=== PATIENT | male | born 1975 | race Caucasian/White ===

== ENCOUNTER 2017-01-13 15:47 | Emergency (ER) | payer BC ==
[~2017-01-13] VITALS: Ht 180.3 cm; Wt 95.3 kg
[2017-01-13] MEDS ORDERED: NKM (16:07)
--- NOTE | 2017-01-13 16:22 | Emergency Room Report ---
History of Present Illness General Chief Complaint: Vomiting Source: Patient Present Illness HPI Patient is a 41-year-old male presented after increased abdominal pain as well as vomiting. Patient reports having several days of crampy abdominal pain associated with nausea. Patient stated this began after Easter meal. Patient denied any fever. He denied feeling dizzy or lightheaded. Patient denied any diarrhea. Patient stated that he crampy abdominal pain which did not radiate. He denied any back pain. He denied other current locations of pain. Patient reported having some increased urine cloudiness. Allergies: Coded Allergies: No Known Allergies (Unverified , 01/13/17) Patient History Past Medical History: see triage record Reviewed Nursing Documentation: PMH: Agreed, PSxH: Agreed Nursing Documentation-PMH Past Medical History: No Stated History Review of Systems All Other Systems: negative except mentioned in HPI Physical Exam Vital Signs Date Time Temp Pulse Resp B/P Pulse Ox O2 Delivery O2 Flow Rate FiO2 01/13/17 16:01 98.1 65 16 134/65 97 Room Air Sp02 EP Interpretation: reviewed, normal General Appearance: normal inspection, well appearing, no apparent distress, alert, GCS 15, non-toxic Head: atraumatic ENT: normal ENT inspection, hearing grossly normal, normal voice Neck: normal inspection, full range of motion, supple, no bony tend Respiratory: normal inspection, lungs clear, normal breath sounds, no respiratory distress, no retraction, no wheezing Cardiovascular #1: regular rate, rhythm, no edema Gastrointestinal: normal inspection, normal bowel sounds, non tender, soft, no guarding, no hernia Genitourinary: no CVA tenderness Musculoskeletal: normal inspection, back normal, normal range of motion Neurologic: normal inspection, alert, oriented x3, responsive, 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 Differential diagnoses included ischemic bowel, appendicitis, perforated viscus, abdominal aortic aneurysm, inferior myocardial infarction, viral gastroenteritis . The patient appears to have gastroenteritis. The patient was given oral Zofran.He was noted to be orthostatic. The patient was given IV fluids. The patient reported having improvement in his pain as well as nausea. Patient is advised to return if any worsening condition or if any changes in status that are concerning. Labs Test 01/13/17 17:00 White Blood Count 11.1 K/UL (4.8-10.8) Red Blood Count 5.52 M/UL (4.70-6.10) Hemoglobin 17.2 G/DL (14.2-18.0) Hematocrit 48.3 % (42.0-52.0) Mean Corpuscular Volume 88 FL (80-99) Mean Corpuscular Hemoglobin 31.3 PG (27.0-31.0) Mean Corpuscular Hemoglobin Concent 35.7 G/DL (32.0-36.0) Red Cell Distribution Width 11.3 % (11.6-14.8) Platelet Count 261 K/UL (150-450) Mean Platelet Volume 8.4 FL (6.5-10.1) Neutrophils (%) (Auto) 72.0 % (45.0-75.0) Lymphocytes (%) (Auto) 17.1 % (20.0-45.0) Monocytes (%) (Auto) 9.7 % (1.0-10.0) Eosinophils (%) (Auto) 0.4 % (0.0-3.0) Basophils (%) (Auto) 0.9 % (0.0-2.0) Sodium Level 140 mEQ/L (135-145) Potassium Level 3.8 mEQ/L (3.4-4.9) Chloride Level 96 mEQ/L (98-107) Carbon Dioxide Level 31 mEQ/L (20-30) Anion Gap 13 (5-15) Blood Urea Nitrogen 15 mg/dL (7-23) Creatinine 1.2 mg/dL (0.7-1.2) Estimat Glomerular Filtration Rate > 60 mL/min (>60) Glucose Level 104 mg/dL (74-106) Calcium Level 9.4 mg/dL (8.6-10.2) Total Bilirubin 0.4 mg/dL (0.0-1.2) Aspartate Amino Transf (AST/SGOT) 13 U/L (5-40) Alanine Aminotransferase (ALT/SGPT) 29 U/L (3-41) Alkaline Phosphatase 75 U/L (40-129) Total Protein 7.3 g/dL (6.6-8.7) Albumin 4.6 g/dL (3.5-5.2) Globulin 2.7 g/dL Albumin/Globulin Ratio 1.7 (1.0-2.7) Last Vital Signs Date Time Temp Pulse Resp B/P Pulse Ox O2 Delivery O2 Flow Rate FiO2 01/13/17 16:01 98.1 65 16 134/65 97 Room Air Status: improved Disposition: HOME, SELF-CARE Condition: Stable Scripts Dicyclomine Hcl* (BENTYL*) 10 Mg Capsule 10 MG ORAL FOUR TIMES A DAY, #20 CAP Prov: John Mckenzie 01/13/17 Ondansetron Odt* (ZOFRAN ODT*) 4 Mg Tab.rapdis 4 MG ORAL EVERY 8 HOURS, #10 TAB 0 Refills Prov: John Mckenzie 01/13/17 John Mckenzie Jan 13, 2017 16:22
[2017-01-13 16:30] VITALS: BP 132/77
[2017-01-13] MEDS ORDERED: Dicyclomine HCl 10mg/5ml oral soln ORAL ONE (16:30)
[2017-01-13 16:32] VITALS: BP 132/98
[2017-01-13 17:16] VITALS: BP 132/77
[2017-01-13 17:37] LABS: BASOPHILS % (AUTO) 0.9 % (0.0-2.0); EOSINOPHILS % (AUTO) 0.4 % (0.0-3.0); LYMPHOCYTES % (AUTO) 17.1 % (20.0-45.0); MEAN CORPUSCULAR HEMOGLOBIN 31.3 PG (27.0-31.0); MEAN CORPUSCULAR HGB CONC 35.7 G/DL (32.0-36.0); MEAN CORPUSCULAR VOLUME 88 FL (80-99); MEAN PLATELET VOLUME 8.4 FL (6.5-10.1); MONOCYTES % (AUTO) 9.7 % (1.0-10.0); PLATELET COUNT 261 K/UL (150-450); RED BLOOD COUNT 5.52 M/UL (4.70-6.10); RED CELL DISTRIBUTION WIDTH 11.3 % (11.6-14.8); WHITE BLOOD COUNT 11.1 K/UL (4.8-10.8)
[2017-01-13 17:50] VITALS: BP 128/73
[2017-01-13 17:52] VITALS: BP 133/86
[2017-01-13 18:00] LABS: ALANINE AMINOTRANSFERASE 29 U/L (3-41); ALBUMIN/GLOBULIN RATIO 1.7 (1.0-2.7); ANION GAP 13 (5-15); ASPARTATE AMINO TRANSFERASE 13 U/L (5-40); CALCIUM 9.4 mg/dL (8.6-10.2); CARBON DIOXIDE 31 mEQ/L (20-30); CHLORIDE 96 mEQ/L (98-107); CREATININE 1.2 mg/dL (0.7-1.2); GLOMERULAR FILTRATION RATE > 60 mL/min (>60); HEMOLYSIS 8; POTASSIUM 3.8 mEQ/L (3.4-4.9); SODIUM 140 mEQ/L (135-145); TOTAL PROTEIN 7.3 g/dL (6.6-8.7)
[2017-01-13] MEDS ORDERED: BENTYL10 MG ORAL (18:00)
[2017-01-13] MEDS ORDERED: ONDANSETRON ODT4 MG ORAL (18:00)
[2017-01-13 18:47] VITALS: BP 133/86
== END 2017-01-13 18:48 | disposition home or self-care (01) ==
LOC: EMR 16:31
DX: K52.9 Noninfective gastroenteritis and colitis, unspecified (principal)
CPT/HCPCS: 36415; 80053; 85025; 96360

== ENCOUNTER 2017-03-23 04:19 | Emergency (ER) | payer BC ==
[~2017-03-23] VITALS: Ht 180.3 cm; Wt 93.0 kg
[~2017-03-23 04:19] MED LIST: BENTYL10 MG ORAL; NKM; ONDANSETRON ODT4 MG ORAL
[2017-03-23] MEDS ORDERED: IBUPROFEN600 MG ORAL (04:27)
[2017-03-23] MEDS ORDERED: HYDROCODON-ACE1 EA15 ORAL (04:27)
[2017-03-23] MEDS ORDERED: Norco 5mg/325mg tab ORAL ONE (04:30)
--- NOTE | 2017-03-23 04:32 | Emergency Room Report ---
History of Present Illness General Chief Complaint: To Be Triaged Source: Patient Present Illness HPI This is a 41-year-old male who is right-hand dominant. He presents with chief complaint of shoulder pain. Onset was acute and occurred about 10 minutes ago. He was sleeping when his girlfriend was screaming. She doesn't had a bad dream. He jumped up on the sleeping position. At the same time his girlfriend was lunging over into him. Somehow he dislocated his shoulder. Complaining of severe pain 10 out of 10 pain. No fever chills. No nausea no vomiting. Worse with movement. Never had this problem before. Allergies: Coded Allergies: No Known Allergies (Unverified , 01/13/17) Patient History Past Medical History: see triage record, old chart reviewed Past Surgical History: other Pertinent Family History: none Social History: Denies: smoking Immunizations: other Reviewed Nursing Documentation: PMH: Agreed, PSxH: Agreed Review of Systems Eye: Denies: blurred vision, eye pain ENT: Denies: ear pain, nose congestion, throat swelling Respiratory: Denies: cough, shortness of breath Cardiovascular: Denies: chest pain, palpitations Gastrointestinal: Denies: abdominal pain, diarrhea, nausea, vomiting Musculoskeletal: Reports: joint pain, Denies: back pain Skin: Denies: rash Neurological: Denies: headache, numbness Endocrine: Denies: increased thirst, increased urine Hematologic/Lymphatic: Denies: easy bruising All Other Systems: negative except mentioned in HPI Physical Exam vitals with hypertension Sp02 EP Interpretation: reviewed, normal General Appearance: well appearing, alert, moderate distress - From pain Head: normocephalic, atraumatic Eyes: bilateral eye EOMI, bilateral eye PERRL ENT: hearing grossly normal, normal pharynx Neck: full range of motion, supple, no meningismus Respiratory: chest non-tender, lungs clear, normal breath sounds Cardiovascular #1: regular rate, rhythm, no murmur Gastrointestinal: normal bowel sounds, non tender, no mass, no organomegaly, no bruit, non-distended Musculoskeletal: back normal, gait/station normal, other - Left shoulder: He has deformity consistent with anterior dislocation. Sensation normal over deltoid. Decreased range of motion at the shoulder because of pain. Elbow's nontender. Neurologic: alert, oriented x3 Psychiatric: mood/affect normal Skin: warm/dry Procedures Splinting Splinting : Consent: Verbal Location: Left shoulder Pre-Made Type: Shoulder immobilizer Pre-Proc Neuro Vasc Exam: normal Post-Proc Neuro Vasc Exam: normal Patient Tolerated: Well Complications: None Joint Reduction Joint Reduction : Consent: Verbal Joint Reduction Site: shoulder (L) Procedural Sedation: No Reduction Attempts: One Pre-Procedure NV Exam: Yes Post-Procedure NV Exam: Yes Post Joint Reduction Film: joint reduced Patient Tolerated: Well Complications: None Progress I injected 10 mL of 1% lidocaine without epinephrine into the joint space. With the elbow against the body, I did gentle external rotation of the forearm. The shoulder reduced without any difficulty. Patient tolerated procedure without a problem. Shoulder immobilizer placed afterward. X-rays ordered. Medical Decision Making Diagnostic Impression: Primary Impression: Closed anterior dislocation of left shoulder Qualified Codes: S43.015A - Anterior dislocation of left humerus, initial encounter ER Course Patient presents with left shoulder anterior dislocation. Reduced without difficulty. No evidence of nerve damage. We'll discharge home. Other X-Ray Diagnostic Results # of Views/Limited Vs Complete: 3 View EP Interpretation: Yes Interpretation: no fractures, no dislocation, no soft tissue swelling, other - shoulder reduced Interpreting ER Provider: Matty Grover MD Status: improved Disposition: HOME, SELF-CARE Condition: Stable Scripts Ibuprofen* (MOTRIN*) 600 Mg Tablet 600 MG ORAL THREE TIMES A DAY, #30 TAB 0 Refills Prov: MATTY GROVER M.D. 03/23/17 Hydrocodone/Acetaminophen 5-325* (HYDROCODONE/ACETAMINOPHEN 5-325*) 1 Each Tablet 1 TAB ORAL Q6H Y for For Pain, #20 TAB 0 Refills Prov: MATTY GROVER M.D. 03/23/17 Additional Instructions: Followup with your DrBillie in 7 days. Return if symptom worsen. Wear shoulder immobilizer as needed. MATTY GROVER M.D. Mar 23, 2017 04:32
[2017-03-23 04:53] VITALS: BP 125/79
--- NOTE | 2017-03-23 11:02 | Diagnostic Imaging Report ---
Indications: Left shoulder trauma, pain Technique: 3 views left shoulder. Findings: Comparison: None No fracture, dislocation, joint space widening , surrounding soft tissue swelling/foreign body/gas, or other acute changes are identified. IMPRESSION: No evidence of acute injury to the left shoulder.
== END 2017-03-23 04:54 | disposition home or self-care (01) ==
LOC: EMR 04:31
DX: S43.015A Anterior dislocation of left humerus, initial encounter (principal); Y93.39 Activity, other involving climbing, rappelling and jumping off; Y92.89 Other specified places as the place of occurrence of the external cause
CPT/HCPCS: 29240

== ENCOUNTER 2017-03-25 05:45 | Emergency (ER) | payer BC ==
[~2017-03-25] VITALS: Ht 180.3 cm; Wt 93.0 kg
[~2017-03-25 05:45] MED LIST changes: +HYDROCODON-ACE1 EA15 ORAL; +IBUPROFEN600 MG ORAL
[2017-03-25] MEDS ORDERED: Norco 5mg/325mg tab ORAL ONE (06:00)
[2017-03-25] MEDS ORDERED: Lidocaine 1% Plain 30 ml INJ ONE (06:00)
[2017-03-25 06:32] VITALS: BP 146/85
[2017-03-25] MEDS ORDERED: NORCO 5-325 TA1 EACH ORAL (06:41)
[2017-03-25] MEDS ORDERED: IBUPROFEN600 MG ORAL (06:41)
[2017-03-25 06:49] VITALS: BP 146/85
--- NOTE | 2017-03-25 07:00 | Emergency Room Report ---
History of Present Illness General Chief Complaint: Upper Extremity Injury Source: Patient Present Illness HPI Patient presents emergency department today complaining of left shoulder pain. Patient had a history of recent left shoulder dislocation status post reduction. He states that he woke up today and felt pop in his shoulder with significant amount pain and fell that he dislocated his shoulder again. He denies any chest pain nausea vomiting diarrhea or chills. Denies any direct trauma that he is aware of. No other complaints are noted. Symptoms noted to be moderate to severe. Patient has had had shoulder dislocations prior to this episode.No other modifying factors. No other associated signs and symptoms. No other complaints were noted. Allergies: Coded Allergies: No Known Allergies (Unverified , 01/13/17) Patient History Past Medical History: none Past Surgical History: none Pertinent Family History: none Social History: Denies: alcohol use, drug use, smoking Reviewed Nursing Documentation: PMH: Agreed, PSxH: Agreed Nursing Documentation-PMH Past Medical History: No History, Except For Review of Systems All Other Systems: negative except mentioned in HPI Physical Exam Vital Signs Date Time Temp Pulse Resp B/P Pulse Ox O2 Delivery O2 Flow Rate FiO2 03/25/17 05:44 96.3 78 16 146/85 95 Room Air Sp02 EP Interpretation: reviewed, normal General Appearance: alert, moderate distress Head: atraumatic Eyes: bilateral eye normal inspection ENT: normal ENT inspection, hearing grossly normal, normal voice Neck: normal inspection, full range of motion, supple, no bony tend Respiratory: normal inspection, lungs clear, normal breath sounds, no respiratory distress, no retraction, no wheezing Cardiovascular #1: regular rate, rhythm, no edema Gastrointestinal: normal inspection, normal bowel sounds, non tender, soft, no guarding, no hernia Genitourinary: no CVA tenderness Musculoskeletal: back normal, other - left shoulder tenderness anddecreased range of motion Neurologic: normal inspection, alert, responsive, speech normal Psychiatric: normal inspection, judgement/insight normal, mood/affect normal Skin: normal inspection, normal color, no rash Procedures Splinting Splinting : Consent: Verbal Location: left shoulder Pre-Made Type: shoulder immobilizer Pre-Proc Neuro Vasc Exam: normal Post-Proc Neuro Vasc Exam: normal Patient Tolerated: Well Complications: None Joint Reduction Joint Reduction : Consent: Verbal Joint Reduction Site: shoulder (L) Procedural Sedation: No Reduction Attempts: One Pre-Procedure NV Exam: Yes Post-Procedure NV Exam: Yes Post Joint Reduction Film: joint reduced Patient Tolerated: Well Complications: None Medical Decision Making Diagnostic Impression: Primary Impression: Dislocation, shoulder, anterior Qualified Codes: S43.015A - Anterior dislocation of left humerus, initial encounter ER Course Patient presents emergency department today complaining of shoulder pain. Differential diagnoses include acute shoulder fracture, shoulder dislocation, shoulder strain. Patient exam and x-rays confirmed the presence of acute left anterior shoulder dislocation. This was reduced using scapular manipulation technique. Patient tolerated the procedure without difficulty. Patient was advised to follow primary care physician after reduction. X-ray confirms reduction successful. Patient was advised to follow with orthopedics.Patient is advised to follow up with primary doctor in 2-3 days and return the emergency room for any worsening symptoms and as needed. Other X-Ray Diagnostic Results X-Ray ordered: Left shoulder xray # of Views/Limited Vs Complete: 3 View EP Interpretation: Yes Interpretation: no fractures, no soft tissue swelling, other - anterior shoulder dislocation Indication: Pain Impression: Other - shoulder dislocation Interpreting ER Provider: Laverne Najera MD PA Scribe Text Electronically signed by Laverne Najera MD Last Vital Signs Date Time Temp Pulse Resp B/P Pulse Ox O2 Delivery O2 Flow Rate FiO2 03/25/17 06:49 96.3 85 16 146/85 95 Room Air Status: improved Disposition: HOME, SELF-CARE Condition: Stable Scripts Ibuprofen* (MOTRIN*) 600 Mg Tablet 600 MG ORAL Q8H Y for For Pain, #30 TAB 0 Refills Prov: LAVERNE NAJERA M.D. 03/25/17 Hydrocodone Bit/Acetaminophen 5-325* (NORCO 5-325*) 1 Each Tablet 1 TAB ORAL Q6H Y for For Pain, #10 TAB 0 Refills Prov: LAVERNE NAJERA M.D. 03/25/17 Referrals: TYLER CADLERON Payam MD Patient Instructions: Shoulder Dislocation, Shoulder Dislocation, [id number] LAVERNE NAJERA M.D. Mar 25, 2017 07:00
--- NOTE | 2017-03-25 16:37 | Diagnostic Imaging Report ---
Indication: PAIN Technique: 3 views of the left shoulder Comparison: 03/23/2017 Findings: Interim anterior dislocation of the left humeral head. No definite underlying bony abnormality except for possibly minimal depression in the region of the greater tuberosity Impression:Positive for anterior dislocation. Equivocal minimal Hill-Sachs deformity Findings apparently recognized by the ED physician as a subsequent postreduction film is available
--- NOTE | 2017-03-26 08:24 | Diagnostic Imaging Report ---
Indication: PAIN Technique: 3 views of the left shoulder Comparison: One half hour earlier Findings: Interval reduction of previously demonstrated anterior left shoulder dislocation. No definite underlying bony abnormalities. Impression:Satisfactory reduction of previously demonstrated left shoulder dislocation
== END 2017-03-25 06:50 | disposition home or self-care (01) ==
LOC: EDBD 05:45 → EMR 06:19
DX: S43.015A Anterior dislocation of left humerus, initial encounter (principal); X58.XXXA Exposure to other specified factors, initial encounter; Y92.019 Unspecified place in single-family (private) house as the place of occurrence of the external cause
CPT/HCPCS: 23655; 29240; 73030; 99284; J2001